=== PATIENT | female | born 1975 | race Caucasian/White ===

== ENCOUNTER → 2023-12-28 10:10 | Outpatient (REF) | payer OTHER, BC, SELFPAY | LOC: PAVMRI 10:10 | PROVIDERS: ATTENDING PHYSICIAN Nurse Practitioner | DX: S49.92XD Unspecified injury of left shoulder and upper arm, subsequent encounter (principal) | CPT/HCPCS: 73221 ==

== ENCOUNTER → 2025-03-21 10:21 | Outpatient (REF) | payer BC, SELFPAY | LOC: HWWDC 10:21 | PROVIDERS: ATTENDING PHYSICIAN Obstetrics & Gynecology | DX: Z12.31 Encounter for screening mammogram for malignant neoplasm of breast (principal) | CPT/HCPCS: 77063; 77067 ==